=== PATIENT | female | born 1990 | race Caucasian/White ===

== ENCOUNTER 2021-08-16 00:01 | Inpatient (IN) | payer OTHER ==
[~2021-08-16] VITALS: Ht 170.2 cm; Wt 79.8 kg
[2021-08-16 01:08] LABS: BILIRUBIN NEGATIVE (NEGATIVE); BLOOD NEGATIVE Ery/uL (NEGATIVE); CLARITY CLEAR (CLEAR); COLOR YELLOW (YELLOW); GLUCOSE (U) NORMAL (NORMAL); LEUKOCYTES NEGATIVE Leu/uL (NEGATIVE); NITRITE NEGATIVE (NEGATIVE); PROTEIN TRACE (LOW) mg/dL (NEGATIVE); SPECIFIC GRAVITY 1.025 (1.001-1.030); UROBILINOGEN 0.2 mg/dL (0.2-1.0); pH 6.5 (5.0-9.0)
[2021-08-16 01:09] LABS: HCT 33.1 % (37.0-47.0); HGB 11.3 g/dl (12.5-16.0); MCH 30.9 pg (25.0-31.0); MCHC 34.1 g/dL (32.0-36.0); MCV 90.4 fL (78.0-100.0); MPV 9.7 fL (6.0-9.5); RBC 3.66 M/uL (4.20-5.40); RDW 12.8 % (11.5-14.0); WBC 9.8 K/uL (4.0-10.5)
[2021-08-17 05:50] LABS: HGB 10.7 g/dl (12.5-16.0); MCH 30.7 pg (25.0-31.0); MCHC 33.4 g/dL (32.0-36.0); MCV 91.7 fL (78.0-100.0); MPV 9.4 fL (6.0-9.5); RBC 3.49 M/uL (4.20-5.40); RDW 12.9 % (11.5-14.0); WBC 11.7 K/uL (4.0-10.5)
[2021-08-17] MEDS ORDERED: IBUPROFEN800 M1 PO (07:09)
[2021-08-17] MEDS ORDERED: COLACE100 MG PO (07:09)
[2021-08-17] MEDS ORDERED: FEOSOL325 MG PO (07:09)
[2021-08-17] MEDS ORDERED: PRENATAL FORMU1 EACH PO (07:09)
== END 2021-08-18 11:20 | disposition home or self-care (01) | DRG 805 ==
LOC: FOB 00:01
PROVIDERS: ADMIT Obstetrics & Gynecology
PROC: 10E0XZZ Delivery of Products of Conception, External Approach (ICD-10-PCS; principal; 2021-08-16)
PROC: 10907ZC Drainage of Amniotic Fluid, Therapeutic from Products of Conception, Via Natural or Artificial Opening (ICD-10-PCS; 2021-08-16)
DX: O99.12 Other diseases of the blood and blood-forming organs and certain disorders involving the immune mechanism complicating childbirth (principal); U07.1 COVID-19; Z37.0 Single live birth; O98.52 Other viral diseases complicating childbirth; D62 Acute posthemorrhagic anemia; Z3A.39 39 weeks gestation of pregnancy; D69.6 Thrombocytopenia, unspecified; O90.81 Anemia of the puerperium
CPT/HCPCS: 36415; 81003; J2001; J2795; J7120; U0002